=== PATIENT | female | born 1970 | race Two or more races ===

== ENCOUNTER 2016-08-13 20:29 | Emergency (ER) | payer MEDICAID ==
[~2016-08-13] VITALS: Ht 152.4 cm; Wt 64.4 kg
[2016-08-13] MEDS: PROMETHAZINE/CODEINE 5 ML UDC PO ONE (22:03)
--- NOTE | 2016-08-13 22:03 | NUR ---
promethazine/codeine unavailable. notified, new orders received and implemented
[2016-08-13] MEDS: BENZONATATE 100 MG CAPSULE PO ONE (22:05)
[2016-08-13 22:09] VITALS: BP 107/74
--- NOTE | 2016-08-13 22:10 | NUR ---
Patient discharged to home in stable conditon accompanied by family. Written and verbal after care instructions given. Patient verbalizes understanding of instructions.
[2016-08-13] MEDS ORDERED: BENZONATATE 100 MG CAPSULE ONE (22:15)
== END 2016-08-13 22:18 | disposition home or self-care (01) ==
LOC: ER 20:36
DX: T78.3XXA Angioneurotic edema, initial encounter (principal); Z88.1 Allergy status to other antibiotic agents
CPT/HCPCS: A4663

== ENCOUNTER 2016-08-16 11:38 | Emergency (ER) | payer MEDICAID ==
[~2016-08-16] VITALS: Ht 152.4 cm; Wt 63.5 kg
--- NOTE | 2016-08-16 12:23 | NUR ---
Patient discharged to home in stable conditon. Written and verbal after care instructions given. Patient verbalizes understanding of instructions.
== END 2016-08-16 12:24 | disposition home or self-care (01) ==
LOC: ER 11:38
DX: R51 Headache (principal); Z88.1 Allergy status to other antibiotic agents
CPT/HCPCS: 70450; A4663